=== PATIENT | male | born 1980 | race Caucasian/White ===

== ENCOUNTER 2016-12-19 23:33 | Emergency (ER) | payer SELFPAY ==
[~2016-12-19] VITALS: Ht 175.3 cm; Wt 92.2 kg
[2016-12-19 23:37] VITALS: Ht 175.3 cm; Wt 92.2 kg
--- OUTSIDE RECORDS SUMMARY | 2016-12-19 23:38 | XMS REPORT | Continuity of Care Document ---
Author Author [facility] Organization [facility] Address Unknown Phone Unavailable Allergies Active Description Code Type Severity Reaction Onset Reported/Identified Relationship to Patient Clinical Status Yes No Known Drug Allergies Drug Allergy 09/29/2012 Yes No Known Drug Allergies Drug Allergy N/A N/A 09/29/2012 Yes NKDA Drug Allergy Unknown NONE 10/10/2013 Yes No Known Allergies No Known Allergies Drug Allergy Unknown N/A 01/16/2014 Yes No Known Medication Allergies NKMA N/A N/A 04/08/2015 Medications Problems Date Dx Coded Attending Type Code Diagnosis Diagnosed By 09/29/2012 James Guo MD Final 490 BRONCHITIS NOS 09/29/2012 James Guo MD Admitting 786.2 COUGH 09/28/2013 James Guo MD Final 521.00 DENTAL CARIES NOS 09/28/2013 James Guo MD Final 525.9 DENTAL DISORDER NOS Procedures Code Description Performed By Performed On 86.59 CLOSURE SKIN SUBCUTANEOUS NEC Carmela PAGE, Shital Nobles 01/16/2014 98.21 REMOVAL SUPERFIC FB EYE Marcos Ferro MD 03/16/2015 Results Test Result Range CBC With Platelet and Differential - 04/06/16 15:53 Absolute Basophils 0.02 10*3 0.00-0.20 Absolute Eosinophils 0.18 10*3 0.00-0.50 Absolute Lymphocytes 1.06 10*3 0.80-3.30 Absolute Monocytes 0.84 10*3 0.30-1.00 Absolute Neutrophils 10.00 10*3 1.90- 7.00 Basophils 0 % 0-2 Eosinophils 2 % 0-4 HCT 41.6 % 42.0-52.0 HGB 14.1 g/dL 14.0-18.0 Immature Granulocytes 0.2 % 0.0-1.0 Lymphocytes 9 % 20-46 MCH 32.5 pg 27.0-32.0 MCHC 33.9 g/dL 32.0-36.0 MCV 95.9 fL 82.0-99.0 Monocytes 7 % 4-11 MPV 10.0 fL 9.4-12.3 Neutrophils 83 % 51-75 Platelet Count 254 K/uL 150-400 RBC 4.34 10*6/uL 4.60-6.20 RDW 12.7 % 11.5-14.5 WBC 12.1 K/uL 4.8-10.8 Comprehensive Metabolic Panel (CMP) - 04/06/16 15:53 Albumin 4.2 g/dL 3.5-4.8 Alkaline Phosphatase 84 U/L 26-104 ALT (SGPT) 31 U/L 17-63 Anion Gap 9 NA 3-20 AST (SGOT) 24 U/L 15-41 Bilirubin Total 0.6 mg/dL 0.2-1.2 BUN 9 mg/dL 4-20 Calcium 9.1 mg/dL 8.6-10.0 Chloride 101 mEq/L 99-109 CO2 26 mEq/L 22-32 Creatinine 0.88 mg/dL 0.64-1.27 Globulin 3.2 g/dL 1.9-4.3 Glucose 106 mg/dL 70-100 Potassium 4.2 mEq/L 3.6-5.1 Protein 7.4 g/dL 6.1-7.9 Sodium 136 mEq/L 136-144 eGFR - 04/06/16 15:53 eGFR >60 NA >60 Troponin - 04/06/16 15:53 Troponin <0.05 ng/mL <0.06 Encounters ACCT No. Visit Date/Time Discharge Status Pt. Type Provider Facility Loc./Unit Complaint [id number] 09/28/2013 13:24:00 2012 13:48:00 DIS Emergency Brant PAGE, James Ferreira [facility] [id number] 09/29/2012 12:54:00 2011 15:00:00 DIS Emergency James Guo MD [facility]
--- OUTSIDE RECORDS SUMMARY | 2016-12-19 23:38 | XMS REPORT | Referral Summary ---
Author Author [facility] Organization [facility] Address Unknown Phone Unavailable Care Team Providers Care Research Epidemiologist Name Role Phone No PCP, [facility] Primary Care Physician [phone] Encounter Date(s): 04/08/15 - 04/08/15 [facility] [address] [place] [address] [facility] Discharge Diagnosis: Left otitis media Discharge Disposition: 01-Home or Self Care Attending Physician: Neelima Portillo Attending Physician: Provider, Immediate Care Admitting Physician: Provider, Immediate Care Vital Signs Most recent to 1 oldest [Reference Range]: Temperature Oral 37.0 degC [35.8-37.3 degC] (04/08/15 9:47 AM) Peripheral Pulse 84 bpm Rate [60-100 bpm] (04/08/15 9:47 AM) Blood Pressure 139/86 mmHg [90-140/60-90 mmHg] (04/08/15 9:47 AM) SpO2 97 % (04/08/15 9:47 AM) Problem List Condition Effective Dates Status Health Status Informant Morbid Active patient obesity(Confirmed) Tobacco Active patient user(Confirmed) Allergies, Adverse Reactions, Alerts No Known Medication Allergies Medications No data available for this section Results No data available for this section Immunizations No data available for this section Procedures No data available for this section Social History Social History Type Response Smoking Status Current some day smoker Assessment and Plan Extracted from: Title: Office Visit Note Author: Neelima Portillo Date: 04/08/15 Assessment/Plan 1.Left otitis media Instructed patient on medication, use, common side effects, and administration. Discussed proper OTC medication, including Tylenol or ibuprofen, for symptomatic relief. Instructed patient if symptoms worsen or new symptoms arise to seek medical attention here or at the ER. If no improvement of symptoms follow up with PCP in 2-3 days. Patient voiced understanding and agreed with treatment plan. Patient dismissed in stable condition. Ordered: Office Visit Level 3 Est 60738 Orders: amoxicillin, 500 mg 1 tabs, Oral, BID, X 10 days, # 20 tabs, 0 Refill( s) antipyrine-benzocaine otic, 2 drops, Ear-Left, QID, X 5 days, # 10 mL, 0 Refill(s)
--- OUTSIDE RECORDS SUMMARY | 2016-12-19 23:38 | XMS REPORT | Continuity of Care Document ---
Author Author Jaswant PAGE, David S Organization Ambulatory Address [address] [place] [address] Phone Payers Payer name Insurance type Covered green party ID Authorization(s) Unknown Problems Condition Effective Dates (start - stop) Clinical Status Health examination of defined subpopulation - *Routine Family History Family Member Diagnosis Age At Onset Status Unknown Social History Social History Element Description Quantity Unknown Allergies, Adverse Reactions, Alerts Substance Reaction Severity Status Unknown Medications Medication Instructions Dosage Effective Dates (start - stop) Status Unknown Immunizations Vaccine Date Status Comments Unknown Results Test Name Date and Time Measure Units Reference Range Abnormal Flag Comments Unknown Vital Signs Date / Time: Height Weight Pulse Rate Blood Pressure Temperature Unknown Procedures Procedure Date Unknown Encounters Encounter Location Date Patient Visit [facility] Advance Directives Directive Effective Date Unknown
--- OUTSIDE RECORDS SUMMARY | 2016-12-19 23:38 | XMS REPORT | Referral Summary ---
Author Author [facility] Organization [facility] Address Unknown Phone Unavailable Care Team Providers Care Counselor/Art Therapist Name Role Phone No PCP, Pt States Primary Care Physician [phone] Encounter VC Date(s): 04/06/16 - 04/06/16 [facility] [address] [place] [address] [phone] Discharge Diagnosis: Acute bronchitis Discharge Diagnosis: History of tobacco abuse Discharge Diagnosis: RAD (reactive airway disease) with wheezing Discharge Disposition: 01-Home or Self Care Attending Physician: Amber Jansen MD Admitting Physician: Amber Jansen MD Vital Signs Most recent to 1 oldest [Reference Range]: Temperature Oral 37.7 degC [35.8-37.3 degC] *HI* (04/06/16 3:37 PM) Apical Heart Rate 111 bpm [60-100 bpm] *HI* (04/06/16 4:13 PM) Heart Rate Monitored 128 bpm [60-100 bpm] *HI* (04/06/16 4:25 PM) Respiratory Rate 20 br/min [14-20 br/min] (04/06/16 4:13 PM) Blood Pressure 134/84 mmHg [90-140/60-90 mmHg] (04/06/16 4:13 PM) SpO2 98 % (04/06/16 4:13 PM) Problem List Condition Effective Dates Status Health Status Informant Morbid Active patient obesity(Confirmed) Tobacco Active patient user(Confirmed) Allergies, Adverse Reactions, Alerts No Known Medication Allergies Medications albuterol CFC free 90 mcg/inh inhalation aerosol 2 puffs, Inhalation, q4hr, as needed for wheezing, # 8.5 g, 0 Refill(s) Start Date: 04/06/16 Status: Ordered Atrovent HFA 17 mcg/inh inhalation aerosol 2 puffs, Inhalation, QID, # 12.9 g, 0 Refill(s) Start Date: 04/06/16 Status: Ordered Bactrim DS 800 mg-160 mg oral tablet 1 tabs, Oral, BID, # 20 tabs, 0 Refill(s) Start Date: 04/06/16 Stop Date: 04/16/16 Status: Ordered Results Hematology Most recent to 1 oldest [Reference Range]: WBC [4.8-10.8 12.1 10*3/uL 10*3/uL] *HI* (04/06/16 3:53 PM) RBC [4.60-6.20] 4.34 *LOW* (04/06/16 3:53 PM) Hgb [14.0-18.0 14.1 gm/dL gm/dL] (04/06/16 3:53 PM) Hct [42.0-52.0 %] 41.6 % *LOW* (04/06/16 3:53 PM) MCV [82.0-99.0 fL] 95.9 fL (04/06/16 3:53 PM) MCH [27.0-32.0 pg] 32.5 pg *HI* (04/06/16 3:53 PM) MCHC [32.0-36.0 33.9 gm/dL gm/dL] (04/06/16 3:53 PM) RDW [11.5-14.5 %] 12.7 % (04/06/16 3:53 PM) Platelet [150-400 254 10*3/uL 10*3/uL] (04/06/16 3:53 PM) MPV [9.4-12.3 fL] 10.0 fL (04/06/16 3:53 PM) Immature 0.2 % Granulocytes (04/06/16 3:53 PM) [0.0-1.0 %] Neutrophils [51-75 83 % %] *HI* (04/06/16 3:53 PM) Lymphocytes [20-46 9 % %] *LOW* (04/06/16 3:53 PM) Monocytes [4-11 %] 7 % (04/06/16 3:53 PM) Eosinophils [0-4 %] 2 % (04/06/16 3:53 PM) Basophils [0-2 %] 0 % (04/06/16 3:53 PM) Neutro Absolute 10.00 10*3 [1.90-7.00 10*3] *HI* (04/06/16 3:53 PM) Lymph Absolute 1.06 10*3 [0.80-3.30 10*3] (04/06/16 3:53 PM) Reynolds Absolute 0.84 10*3 [0.30-1.00 10*3] (04/06/16 3:53 PM) Eos Absolute 0.18 10*3 [0.00-0.50 10*3] (04/06/16 3:53 PM) Baso Absolute 0.02 10*3 [0.00-0.20 10*3] (04/06/16 3:53 PM) Chemistry Most recent to 1 oldest [Reference Range]: Sodium Lvl [136-144 136 mEq/L mEq/L] (04/06/16 3:53 PM) Potassium Lvl 4.2 mEq/L [3.6-5.1 mEq/L] (04/06/16 3:53 PM) Chloride [99-109 101 mEq/L mEq/L] (04/06/16 3:53 PM) CO2 [22-32 mEq/L] 26 mEq/L (04/06/16 3:53 PM) AGAP [3-20] 9 (04/06/16 3:53 PM) BUN [4-20 mg/dL] 9 mg/dL (04/06/16 3:53 PM) Glucose Lvl [70-100 106 mg/dL mg/dL] *HI* (04/06/16 3:53 PM) Creatinine Lvl 0.88 mg/dL [0.64-1.27 mg/dL] (04/06/16 3:53 PM) eGFR [>60] >60 1 (04/06/16 3:53 PM) Calcium Lvl 9.1 mg/dL [8.6-10.0 mg/dL] (04/06/16 3:53 PM) Albumin Lvl [3.5-4.8 4.2 gm/dL gm/dL] (04/06/16 3:53 PM) Total Protein 7.4 gm/dL [6.1-7.9 gm/dL] (04/06/16 3:53 PM) Globulin [1.9-4.3 3.2 gm/dL gm/dL] (04/06/16 3:53 PM) ALT [17-63 U/L] 31 U/L (04/06/16 3:53 PM) AST [15-41 U/L] 24 U/L (04/06/16 3:53 PM) Alk Phos [26-104 84 U/L U/L] (04/06/16 3:53 PM) Bili Total [0.2-1.2 0.6 mg/dL 2 mg/dL] (04/06/16 3:53 PM) Troponin [<0.06 <0.05 ng/mL ng/mL] (04/06/16 3:53 PM) 1Result Comment: Multiply eGFR results by 1.21 for race. 2Result Comment: Naproxen, specifically the metabolite O-desmethylnaproxen, may cause spurious elevation in Total Bilirubin levels. Immunizations No data available for this section Procedures No data available for this section Social History Social History Type Response Smoking Status Current some day smoker Assessment and Plan No data available for this section
--- NOTE | 2016-12-19 23:41 | NUR ---
DR ALFREDO IN ROOM
[2016-12-19] MEDS ORDERED: NEOMYCIN/POLYM/BACITR OINT PACKET TOP ONE (23:45)
--- OUTSIDE RECORDS SUMMARY | 2016-12-19 23:53 | XMS REPORT | Continuity of Care Document ---
Author Author [facility] Organization [facility] Address Unknown Phone Unavailable Allergies Active Description [...] Status Pt. Type Provider Facility Loc./Unit Complaint [id number] 09/28/2013 13:24:00 2012 13:48:00 DIS Emergency Brant PAGE, James Ferreira [facility] [id number] 09/29/2012 12:54:00 2011 15:00:00 DIS Emergency James Guo MD [facility]
--- NOTE | 2016-12-19 23:54 | ERPDOC ---
Departure Disposition Decision Date: Dec 20, 2016 Disposition Decision Time: : Disposition: DISCHARGED HOME, SELF-CARE Impression Impression Impression: Primary Impression: Laceration of scalp Qualified Codes: S01.01XA - Laceration without foreign body of scalp, initial encounter Additional Impression: Puncture wound of scalp Qualified Codes: S01.03XA - Puncture wound without foreign body of scalp, initial encounter Severity: Moderate Condition: Improved Seen By: Physician only Patient Instructions: Laceration (ED), Staple Care (ED) Problems/Meds/Labs Reviewed?: Yes Medications reviewed and manag: Yes Additional Instructions: Wound dressing in place for the next 12 hours, thereafter remove dressing daily , wash wound with mild soap and water once daily, cover with a light coat of Vaseline until healed. Have scalp alfredo removed in 7-10 days Return for any significant worsening Follow up care ordered?: Yes Mental Status: Alert Scripts No Active Prescriptions or Reported Meds HPI - Head Injury General Chief Complaint: Laceration Stated Complaint: LAC TO L SIDE OF HEAD Time Seen by Provider: 23:39 Source: patient, family Exam Limitations: no limitations HPI - Head Injury Initial Comments Patient sustained a puncture/serration to the left temporal/parietal region while he was throwing to by fours over his shoulder, one of the 2 by fours had a nail in it and caught his scalp. This occurred 15-20 minutes ago. Patient presents with multiple head wrapped in bandages, but with obvious bleeding dripping down his face onto his chest. Occurred At: home Onset: Rapid Duration: 1/2 hour Severity: moderate Location: temporal 1 - I'll puncture wound/laceration 3 mm, active bleeding, small subcutaneous hematoma Associated Symptoms: DENIES: chest pain, cough, diaphoresis, fever/chills, headaches, loss of appetite, malaise, nausea/vomiting, rash, seizure, shortness of breath, syncope, weakness Hx of Similar Symptoms: No Allergies: Coded Allergies: No Known Allergies (Unverified , 12/20/16) Past History Past Medical History Pt denies signifigant [facility] Surgical History Denies Surgeries Social History Smoking Status: Current every day smoker Does patient use chewing tobac: No Second Hand Exposure: No Substance Use Type: does not use Alcohol Intake: none Record Review Pertinent history updated: Yes Review of Systems Constitutional Constitutional: DENIES: appetite decrease, appetite increase, chills, dizziness , fever, weakness ENMT Ears: DENIES: pain Hearing: DENIES: hearing loss, tinnitus Balance: DENIES: vertigo Mouth/Throat: DENIES: change in swallowing, change in voice, hoarsness, painful swallowing, sore throat Cardiovascular Cardiac: DENIES: chest pain, dyspnea on exertion Rhythm/Rate: DENIES: irregular beat, palpitations, tachycardia Vascular: DENIES: pedal edema Pulmonary Respiratory: DENIES: cough, dyspnea, pleuritic chest pain GI Upper Abdomen: DENIES: dysphagia, heartburn/indigestion, nausea, pain, vomiting Lower Abdomen: DENIES: blood in stool, constipation, diarrhea, pain General: DENIES: burning, dysuria, frequency, pain, urgency Musculoskeletal General: DENIES: cramps, joint pain, joint swelling, pain, weakness Integumentary Skin: DENIES: rash, sores Neurological General: DENIES: headache, numbness, tingling, vertigo, weakness Psychiatric Psychiatric: DENIES: anxiety, depression, nervousness Physical Exam General General Nourishment: well nourished, well developed, appears stated age, no acute distress General Body Habitus: well groomed Vitals and Pain First Documented Vital Signs Date Time Temp Pulse Resp B/P Pulse Ox O2 Delivery O2 Flow Rate FiO2 12/19/16 23:37 Room Air Weight: Kilograms: 92.200 Height (feet): 5 Height (inches): 9.00 Triage Pain Scale: RN VS reviewed by Provider: Yes Normal Exams: Eyes: Pupils are PERRLA w/ EOMI, No scleral icterus, irritation, or foreign bodies noted ENMT: No facial trauma, nasal exudates, pharyngeal erythema, or exudates are noted Neck: Full range of motion, without adenopathy, JVD, bruits or thyromegaly Chest/Resp: Clear all taylor, with good airflow, and symmetry bilaterally CV: Regular rate and rhythm, without murmur or gallop, Pulses 2+ all extremities, capillary refill, <2 seconds all ext., no pedal edema noted Abdomen: Bowel sounds positive, soft, non-tender, non-distended, no hepatosplenomegaly, masses or bruits noted Lymphatic: No lymphadenopathy, or lymphedema noted Musculoskeletal: No tenderness, or deformity noted, good range of motion, all extremities Integumentary: No rashes, hives, or bruising noted, hair and nails, without abnormality Neurologic: Patient is alert, and oriented, cranial nerves, motor/sensory/ cerebellar, exams w/o gross deficits, to observation Psychiatric: Patient exhibits, appropriate attention, emotion and affect Eyes (brief) Eyes Brief: found: EOMI, PERRL, not found: scleral icterus ENMT (brief) ENMT Brief: FOUND: TM clear, TM good light reflex, ear canals clear, mucosa moist, normal dentition, normal tonsils, NOT FOUND: lesions, nasal erythema, nasal exudate, nasal swelling, petechiae, pharnyx erythema, tonsillar deviation Comments Patient has a small 3 mm puncture wound/laceration to the left temporal region. 2 cm palpable hematoma subcutaneously, with active bleeding. Procedures Procedures Performed Procedures Performed: Laceration Repair Laceration/Wound Repair Wound/Laceration Repair : Wound Location: head Wound Length (cm): 0.3 Depth, Shape: subcutaneous (linear puncture) Explored: clean Irrigated: Prep: sureclens Wound Debrided: minimal Wound Revision?: No Repaired With: Eighty Four Number of Sutures: 2 Progress Results/Orders Orders Procedure Category Date Status Time Irrigate/Clean Wound EDM 12/19/16 Transmitted 23:45 Dressing (Ed) EDM 12/19/16 Transmitted 23:45 Neomycin/Polymyxin/Bacitracin PHA 12/19/16 Complete (Neosporin 23:45 Ct Head W/O Contrast CT 12/20/16 Logged 00:45 Medications Current ED Medications Neomycin/ Polymyxin/ Bacitracin (Neosporin) 1 applic O ONCE TOP Last administered on 12/19/16t 23:45; Start 12/19/16 at 23:45; Stop 12/19/16 at 23:46 ; Status DC Progress Progress CT head - negative SALBADOR ALFREDO MD Dec 19, 2016 23:54
--- NOTE | 2016-12-20 00:48 | NUR ---
REPORT GIVEN TO DINESH MOMIN
--- NOTE | 2016-12-20 00:50 | NUR ---
IMAGING PT RETURN FROM IMAGING VIA WHEEL CHAIR AT THIS TIME.
--- NOTE | 2016-12-20 01:35 | NUR ---
DEPART PT GIVEN DI FOR LACERATION, STAPLE CARE, F/U. VERBALIZES UNDERSTANDING OF DI. QUESTIONS ASKED/ANSWERED. DENIES FURTHER QUESTIONS/NEEDS AT THIS TIME. PERSONAL BELONGINGS GATHERED. PT ESCORTED/AMBULATED TO ED EXIT - GAIT STABLE, NO SIGN OF DISTRESS.
--- NOTE | 2016-12-20 08:07 | DI ---
Indication: ITS.REASON: puncture wound to left temporoparietal area PROCEDURE: CT HEAD W/O CONTRAST: Encounter: Initial Comparison: None Technique: Axial CT images through the head were performed without contrast. Iterative Reconstruction dose reducing technique was utilized. FINDINGS: The ventricles are of normal size, shape, and configuration for the patient's age. There is no evidence of acute intracranial hemorrhage, midline displacement, or mass effect. The CT attenuation of the brain parenchyma is normal within the cerebellum, brain stem, and cerebral hemispheres. The tympanic cavities and mastoid air cells are free of appreciable disease. There are no definite fractures of the skull base, calvarium, or visualized portion of the midface. Skin alfredo in the left frontal region. IMPRESSION: No CT evidence of acute traumatic intracranial injury. There is a preliminary report by [facility]. .
== END 2016-12-20 01:35 | disposition home or self-care (01) ==
LOC: ED 23:33
DX: S01.01XA Laceration without foreign body of scalp, initial encounter (principal); S01.03XA Puncture wound without foreign body of scalp, initial encounter; W20.8XXA Other cause of strike by thrown, projected or falling object, initial encounter; Y93.89 Activity, other specified; Y92.009 Unspecified place in unspecified non-institutional (private) residence as the place of occurrence of the external cause; Y99.8 Other external cause status